=== PATIENT | female | born 1990 | race Caucasian/White ===

== ENCOUNTER 2018-09-05 07:52 | Emergency (ER) | payer OTHER ==
[~2018-09-05] VITALS: Ht 177.8 cm; Wt 104.3 kg
--- OUTSIDE RECORDS SUMMARY | 2018-09-05 07:55 | XMS REPORT | Encounter Summary ---
Author Organization Unknown Address [address] [place] [address] Phone [phone] Reason for Visit Medical Complaint Instructions 1. Sore throat symptom sore throat: care instructions rapid strep group A, throat Lidocaine Viscous 2 % mucosal solution 2. Cough cough: care instructions rapid flu (A+B) Bromfed DM 2 mg-30 mg-10 mg/5 mL syrup 3. Rhinitis fluticasone 50 mcg/actuation nasal spray,suspension rhinitis: care instructions 4. Smoker stopping smoking: care instructions peak flow 5. Elevated blood pressure elevated blood pressure: care instructions dash diet: care instructions blood pressure monitoring education 6. Body mass index 30+ - obesity body mass index: care instructions learning about healthy weight Discussion Note: None recorded. Plan of Care Patient Instructions Rhinitis is swelling and irritation in the nose. Allergies and infections are often the cause. Your nose may run or feel stuffy. Other symptoms are itchy and sore eyes, ears, throat, and mouth. If allergies are the cause, your doctor may do tests to find out what you are allergic to. You may be able to stop symptoms if you avoid the things that cause them. Your doctor may suggest or prescribe medicine to ease your symptoms. Follow-up care is a cameron part of your treatment and safety. Be sure to make and go to all appointments, and call your doctor if you are having problems. It's also a good idea to know your test results and keep a list of the medicines you take. How can you care for yourself at home? If your rhinitis is caused by allergies, try to find out what sets off (triggers) your symptoms. Take steps to avoid these triggers. Avoid yard work. It can stir up both pollen and mold. Do not smoke or allow others to smoke around you. If you need help quitting, talk to your doctor about stop-smoking programs and medicines. These can increase your chances of quitting for good. Do not use aerosol sprays, cleaning products, or perfumes. If pollen is one of your triggers, close your house and car windows during blooming season. Clean your house often to control dust. Keep pets outside. If your doctor recommends isaw-vwi-trexknx medicines to relieve symptoms, take your medicines exactly as prescribed. Call your doctor if you think you are having a problem with your medicine. Use saline (saltwater) nasal washes to help keep your nasal passages open and wash out mucus and bacteria. You can buy saline nose drops at a grocery store or drugstore. Or you can make your own at home by adding 1 teaspoon of salt and 1 teaspoon of baking soda to 2 cups of distilled water. If you make your own, fill a bulb syringe with the solution, insert the tip into your nostril, and squeeze gently. Blow your nose. When should you call for help? Call your doctor now or seek immediate medical care if: You are having trouble breathing. Watch closely for changes in your health, and be sure to contact your doctor if: Mucus from your nose gets thicker (like pus) or has new blood in it. You have new or worse symptoms. You do not get better as expected. Reminders Provider Appointments None recorded. Lab Rapid Strep Group a, Throat 07/25/2018 [facility] Rapid Flu (A+B) 07/25/2018 [facility] Referral None recorded. Procedures None recorded. Surgeries None recorded. Imaging None recorded. Medications Name Start Date amoxicillin 500 mg capsule amoxicillin 875 mg-potassium clavulanate 125 mg tablet benzonatate 100 mg capsule Bromfed DM 2 mg-30 mg-10 mg/5 mL syrup Take 10 mL every 4 hours by oral route. chlorhexidine gluconate 0.12 % mouthwash fluticasone 50 mcg/actuation nasal spray,suspension Story 1 spray every day by intranasal route. ipratropium bromide 42 mcg (0.06 %) nasal spray Lidocaine Viscous 2 % mucosal solution Take 15 mL every 3 hours by oral route. methylprednisolone 4 mg tablets in a dose pack USE DIRECTED Mirena 20 mcg/24 hr (5 years) intrauterine device montelukast 10 mg tablet TK 1 T PO QD ondansetron 4 mg disintegrating tablet oseltamivir 75 mg capsule Medications Administered None recorded. Vitals Height Weight BMI Blood Pressure 5 ft 10 in 230 lbs 33 kg/m2 110/80 mm[Hg] Lab Results Date Name Specimen Result Interpretation Description Value Range Status Address 07/25/2018 Peak Flow Pef 502 [facility]: [facility] Percent Predicted Value 60 [facility]: [facility] Rapid Flu (A+B) Influenza a negative [facility]: [facility] Influenza B negative [facility]: [facility] Rapid Strep Group a, Throat Result negative [facility]: 9 [facility] Swab Location Left and Right tonsillar pillars [facility]: [facility] Allergies Code Code System Name Reaction Severity Status Onset NKDA Problems Name Status Onset Date Source Allergic Rhinitis Active Encounter Gastroenteritis Active Encounter Expiratory Wheezing Active Encounter Procedures Date Name Performed by Tonsillectomy Information not available Vaccine List None recorded. Social History Smoking Status Current Every Day Smoker Past Encounters 07/25/2018 Sore Throat Symptom; Cough; Rhinitis; Smoker; Elevated Blood Pressure; Body Mass Index 30+ - Obesity [facility]: [address] [place] [address], Ph. History of Present Illness Ruzfp-Nvyuzysdim-Uvemgow Reported By: Patient HPI: Location: head/sinuses, throat. Quality: sore throat, nasal/sinus congestion, dry cough. Duration: 3days. Severity: moderate. Onset/Timing: gradual. Context: no sick contacts, no foreign travel, smoker, allergies, asthma. Modifying factors: OTC medication Review of Systems:ROS as noted in the HPI Review of Systems Basic Reported By: Patient Physical Exam Adult Basic, Adult Female Complete Reported By: Patient Constitutional: General Appearance: obese. Level of Distress: NAD. Ambulation: ambulating normally Psychiatric: Mental Status: active and alert. Orientation: to time, to place, to person Hef-Lfoj-Ynrar-Throat: Ears: no lesions on external ear, no outer ear tenderness, EACs clear, TMs clear. Hearing: no hearing loss. Nose: no lesions on external nose, nares patent, no septal deviation, nasal passages clear, no sinus tenderness, no nasal discharge. Lips, Teeth, and Gums: no mouth or lip ulcers, no bleeding gums, normal dentition. Oropharynx: moist mucous membranes, no erythema, no exudates, tonsils not enlarged Lungs: Respiratory effort: no dyspnea, no tachypnea, no use of accessory muscles, no intercostal retractions. Auscultation: breath sounds normal Cardiovascular: Heart Auscultation: RRR, no murmurs
--- OUTSIDE RECORDS SUMMARY | 2018-09-05 07:55 | XMS REPORT | Encounter Summary ---
Author Organization Unknown Address [address] [place] [address] Phone [phone] Reason for Visit Medical Complaint Instructions 1. Seasonal allergic rhinitis seasonal allergies: care instructions montelukast 10 mg tablet Medrol (Ajay) 4 mg tablets in a dose pack 2. Smoker Discussion Note Pt is in NAD; Verbalizes understanding of all instructions with no questions at this time. Plan of Care Patient Instructions Take fluticasone as needed for congestion. [place] one spray in each nostril twice a day. Take a warm, steamy shower, blow your nose thereafter, and spray in each nostril. Tilt your head up for about 10 seconds and breath through your mouth. Do not sniff or snort the medication in or else the medication will go to your throat and not be absorbed appropriately. Alternate with Ibuprofen and acetaminophen every 4hrs as needed for headache Proper hydration and rest Take medications as prescribed. Return to clinic or follow up with your PCP within 2-3 days if symptoms worsen as discussed. Reminders Provider Appointments None recorded. Lab None recorded. Referral None recorded. Procedures None recorded. Surgeries None recorded. Imaging None recorded. Medications Name Start Date Medrol (Ajay) 4 mg tablets in a dose pack Take as directed on package. montelukast 10 mg tablet Take 1 tablet every day by oral route as directed for 30 days. Medications Administered None recorded. Vitals Height Weight BMI Blood Pressure 5 ft 9 in 215 lbs 31.7 124/82 Lab Results None recorded. Allergies Code Code System Name Reaction Severity Onset NKDA Problems Name Status Onset Date Source Allergic Rhinitis Active Encounter Gastroenteritis Active Encounter Expiratory Wheezing Active Encounter Procedures Date Name Performed by Tonsillectomy Information not available Vaccine List None recorded. Social History Smoking Status Current Every Day Smoker Past Encounters 11/23/2016 Seasonal Allergic Rhinitis; Smoker [facility]: [address] [place] [address], Ph. History of Present Illness Mswyb-Eyignipudu-Ouvhzfs Reported By: Patient HPI: Location: head/sinuses. Quality: nasal/sinus congestion. Duration: 4days. Severity: moderate. Onset/Timing: gradual. Context: no sick contacts, no foreign travel, smoker, allergies. Modifying factors: OTC medication. Associated Symptoms: no sputum production, no shortness of breath, no wheezing, no change in number of pillows needed to sleep at night, no sweats, no significant weight gain, no significant weight loss, no morning cough, no sore throat, no vomiting, no diarrhea, no rash, no nausea, no fever, no muscle aches, headache; sinus/ ear pressure Review of Systems:ROS as noted in the HPI Review of Systems Basic Reported By: Patient Physical Exam Adult Basic, Adult Female Complete Reported By: Patient Constitutional: General Appearance: healthy-appearing, well-nourished, well-developed. Level of Distress: NAD. Ambulation: ambulating normally Psychiatric: Mental Status: active and alert. Orientation: to time, to place, to person Eyes: Lids and Conjunctivae: non-injected Ifh-Wzjc-Cnhby-Throat: Ears: no lesions on external ear, no outer ear tenderness, EACs clear, TMs clear. Hearing: no hearing loss. Nose: no lesions on external nose, nares patent, no septal deviation, nasal passages clear, no sinus tenderness, nasal discharge--rhinorrhea, post nasal drip; Nasal turbinates are edematous and pale bilaterally. Lips, Teeth, and Gums: no mouth or lip ulcers, no bleeding gums, normal dentition. Oropharynx: moist mucous membranes, no erythema, no exudates, tonsils not enlarged Neck: Neck: supple. Lymph Nodes: no cervical LAD Lungs: Respiratory effort: no dyspnea, no tachypnea, no use of accessory muscles, no intercostal retractions. Auscultation: breath sounds normal Cardiovascular: Heart Auscultation: RRR, no murmurs Neurologic: Gait and Station: normal gait
--- OUTSIDE RECORDS SUMMARY | 2018-09-05 07:55 | XMS REPORT | Encounter Summary ---
Author Organization Unknown Address [address] [place] [address] Phone [phone] Reason for Visit Medical Complaint; headache, cough, allergies, chest congestion x2 weeks getting worse x 4 days Instructions 1. Allergic rhinitis Xyzal 5 mg tablet 2. Expiratory wheezing Medrol (Ajay) 4 mg tablets in a dose pack albuterol sulfate HFA 90 mcg/actuation aerosol inhaler Discussion Note: None recorded. Patient educational handouts: No information available. Plan of Care Patient Instructions Start on Rhinocort daily x 7-14 days along with prescribed medication. If noted symptoms worsening with fever, call clinic or see pcp. Reminders Provider Appointments None recorded. Lab None recorded. Referral None recorded. Procedures None recorded. Surgeries None recorded. Imaging None recorded. Medications Name Start Date albuterol sulfate HFA 90 mcg/actuation aerosol inhaler Inhale 2 puffs every 4 hours by inhalation route as needed for wheezing. Medrol (Ajay) 4 mg tablets in a dose pack Take as directed on package. Xyzal 5 mg tablet Take 1 tablet every day by oral route at bedtime for allergies for 30 days. Medications Administered None recorded. Vitals Height Weight BMI Blood Pressure 5 ft 9 in 210 lbs 31 120/86 Lab Results None recorded. Allergies Name Reaction Severity Onset NKDA Problems Name Status Onset Date Source Allergic Rhinitis Active Encounter Gastroenteritis Active Encounter Expiratory Wheezing Active Encounter Procedures Date Name Performed by Tonsillectomy Information not available Vaccine List None recorded. Social History Smoking Status Current Every Day Smoker Past Encounters 04/19/2016 Allergic Rhinitis; Expiratory Wheezing Cassidy Gonzalez, [facility]: [address] [place] [address], Ph. History of Present Illness [id number]-Pwdmeui Reported By: Patient HPI: Location: chest. Quality: productive cough, nasal/sinus congestion. Duration: 14days. Severity: moderate. Onset/Timing: gradual. Context: no sick contacts, no foreign travel, non-smoker, allergies. Modifying factors: OTC medication. Associated Symptoms: no sputum production, no shortness of breath, no change in number of pillows needed to sleep at night, no sweats, no significant weight gain, no significant weight loss, no morning cough, no sore throat, no vomiting, no diarrhea, no rash, no nausea, wheezing Review of Systems Basic Reported By: Patient Constitutional: Constitutional: no fever Eyes: Eyes: no eye complaints Uoeg-Nzxy-Mhodx-Throat: Ears: no ear complaints. Nose: nose/sinus problems. Mouth/Throat: no sore throat, no bleeding gums, no mouth complaints, no teeth problems Cardiovascular: Cardiovascular: no chest pain, no shortness of breath, no known heart murmur Respiratory: Respiratory: no shortness of breath, cough, wheezing Gastrointestinal: Gastrointestinal: no abdominal pain, no vomiting / diarrhea Genitourinary: Genitourinary: no urinary complaints, no discharge Musculoskeletal: Musculoskeletal: no muscle aches, no muscle weakness, no arthralgias/joint pain, no back pain Skin: Skin: no abnormal / changing mole, no jaundice, no rashes Neurologic: Neurologic: no loss of consciousness, no weakness, no numbness, no seizures, no dizziness, no headaches Physical Exam Adult Basic, Adult Female Complete Constitutional: General Appearance: healthy-appearing, well-nourished, well-developed. Level of Distress: NAD. Ambulation: ambulating normally Psychiatric: Mental Status: active and alert. Orientation: to time, to place, to person Eyes: Lids and Conjunctivae: non-injected, no discharge, no pallor. Pupils: PERRLA. Corneas: grossly intact. EOM: EOMI. Lens: clear. Sclerae: non-icteric. Vision: acuity grossly intact Gxr-Pfsx-Rczpg-Throat: Ears: no lesions on external ear, no outer ear tenderness, EACs clear, TMs clear, middle ear fluid. Hearing: no hearing loss. Nose: no lesions on external nose, nares patent, no septal deviation, nasal passages clear, no sinus tenderness, post nasal drip. Lips, Teeth, and Gums: no mouth or lip ulcers, no bleeding gums, normal dentition. Oropharynx: moist mucous membranes, no erythema, no exudates, tonsils not enlarged Neck: Neck: supple, trachea midline, no masses, FROM. Lymph Nodes: no cervical LAD, no supraclavicular LAD. Thyroid: no enlargement, non-tender, no nodules Lungs: Respiratory effort: no dyspnea, no tachypnea, no use of accessory muscles, no intercostal retractions. Auscultation: expiratory wheezing Cardiovascular: Heart Auscultation: RRR, no murmurs. Neck vessels: no carotid bruits
--- OUTSIDE RECORDS SUMMARY | 2018-09-05 07:55 | XMS REPORT | Continuity of Care Document ---
Author Author [facility] Interface Address Unknown Phone Unavailable Problems Problem Status Onset Date Classification Date Reported Comments Source Body mass index 30+ - obesity 07/26/2018 Diagnosis 07/26/2018 [facility] Elevated blood pressure 07/26/2018 Diagnosis 07/26/2018 [facility] Rhinitis 07/26/2018 Diagnosis 07/26/2018 [facility] Cough 07/26/2018 Diagnosis 07/26/2018 [facility] Sore throat symptom 07/26/2018 Diagnosis 07/26/2018 [facility] Smoker 07/26/2018 Diagnosis 07/26/2018 [facility] Seasonal allergic rhinitis 11/23/2016 Diagnosis 11/23/2016 [facility] Allergic rhinitis 04/19/2016 Diagnosis 04/19/2016 [facility] Expiratory wheezing 04/19/2016 Diagnosis 04/19/2016 [facility] Allergic Rhinitis Problem 07/26/2018 [facility] Gastroenteritis Problem 07/26/2018 [facility] Expiratory Wheezing Problem 07/26/2018 [facility] Medications Medication Details Route Status Patient Instructions Ordering Provider Order Date Source 200 ACTUAT Albuterol 0.09 MG/ACTUAT Metered Dose Inhaler albuterol sulfate HFA 90 mcg/actuation aerosol inhaler Inhale 2 puffs every 4 hours by inhalation route as needed for wheezing. Active [facility] Medrol (Ajay) 4 mg tablets in a dose pack Medrol (Ajay) 4 mg tablets in a dose pack Take as directed on package. Active [facility] levocetirizine dihydrochloride 5 MG Oral Tablet [Xyzal] Xyzal 5 mg tablet Take 1 tablet every day by oral route at bedtime for allergies for 30 days. Active [facility] montelukast 10 MG Oral Tablet montelukast 10 mg tablet TK 1 T PO QD Active [facility] Amoxicillin 500 MG Oral Capsule amoxicillin 500 mg capsule Active [facility] Amoxicillin 875 MG / Clavulanate 125 MG Oral Tablet amoxicillin 875 mg-potassium clavulanate 125 mg tablet Active [facility] benzonatate 100 MG Oral Capsule benzonatate 100 mg capsule Active [facility] Brompheniramine Maleate 0.4 MG/ML / Dextromethorphan Hydrobromide 2 MG/ML / Pseudoephedrine Hydrochloride 6 MG/ML Oral Solution [Bromfed DM] Bromfed DM 2 mg-30 mg-10 mg/5 mL syrup Take 10 mL every 4 hours by oral route. Active [facility] chlorhexidine gluconate 1.2 MG/ML Mouthwash chlorhexidine gluconate 0.12 % mouthwash Active [facility] Fluticasone propionate 0.05 MG/ACTUAT Metered Dose Nasal [place] fluticasone 50 mcg/actuation nasal spray,suspension [place] 1 spray every day by intranasal route. Active [facility] Ipratropium [place] 0.042 MG/ACTUAT Metered Dose Nasal [place] ipratropium bromide 42 mcg (0.06 %) nasal spray Active [facility] Lidocaine Hydrochloride 20 MG/ML Mucous Membrane Topical Solution Lidocaine Viscous 2 % mucosal solution Take 15 mL every 3 hours by oral route. Active [facility] methylprednisolone 4 mg tablets in a dose pack methylprednisolone 4 mg tablets in a dose pack USE DIRECTED Active [facility] Levonorgestrel 0.823331 MG/HR Intrauterine System [Mirena] Mirena 20 mcg/24 hr (5 years) intrauterine device Active [facility] Ondansetron 4 MG Disintegrating Oral Tablet ondansetron 4 mg disintegrating tablet Active [facility] Oseltamivir 75 MG Oral Capsule oseltamivir 75 mg capsule Active [facility] Allergies, Adverse Reactions, Alerts Substance Category Reaction Severity Reaction type Status Date Reported Comments Source Immunizations Immunization Date Given Site Status Last Updated Comments Source Results Order Name Results Value Reference Range Date Interpretation Comments Source PEF 502 07/25/2018 [facility] Percent Predicted Value 60 07/25/2018 [facility] Influenza A negative 07/25/2018 [facility] Influenza B negative 07/25/2018 [facility] RESULT negative 07/25/2018 [facility] SWAB LOCATION Left and Right tonsillar pillars 07/25/2018 [facility] Vital Signs Vital Sign Value Date Comments Source Diastolic (mm Hg) 80 07/25/2018 [facility] Height 70 07/25/2018 [facility] Systolic (mm Hg) 110 07/25/2018 [facility] Weight 230 07/25/2018 [facility] Diastolic (mm Hg) 82 11/23/2016 [facility] Height 69 11/23/2016 [facility] Systolic (mm Hg) 124 11/23/2016 [facility] Weight 215 11/23/2016 [facility] Diastolic (mm Hg) 86 04/19/2016 [facility] Height 69 04/19/2016 [facility] Systolic (mm Hg) 120 04/19/2016 [facility] Weight 210 04/19/2016 [facility] Encounters Location Location Details Encounter Type Encounter Number Reason For Visit Attending Provider ADM Date DC Date Status Source [place] - [facility] - [id number] Cassidy Gonzalez, [employer]: [address] [place] [address], Ph. [id number] Cassidy Gonzalez 04/19/2016 [facility] [place] - [facility] - [id number] PAUL FletcherP[facility]: [address] [place] [address], Ph. [id number] Dunia Venegas 11/23/2016 [facility] [place] - [facility] - [id number] PAUL [facility]unaway[facility]: [address] [place] [address], Ph. [id number] Rachel Araya 07/25/2018 [facility] Procedures Procedure Code Date Perfomer Comments Source Tonsillectomy [facility]
[2018-09-05] MEDS ORDERED: KETOROLAC TROMETHAMINE 30 MG/ML VIAL IV STA (08:05)
[2018-09-05] MEDS ORDERED: DICYCLOMINE HCL 20 MG/2 ML VIAL IM ONE (08:15)
[2018-09-05] MEDS ORDERED: MORPHINE SULFATE 5 MG/ML VIAL IV ONE (08:15)
[2018-09-05] MEDS ORDERED: SODIUM CHLORIDE 0.9% 1000ML 1,000 ML IV ONE (08:15)
[2018-09-05] MEDS ORDERED: METOCLOPRAMIDE HCL 10 MG/2ML VIAL IV NR (08:30)
[2018-09-05] MEDS ORDERED: MORPHINE SULFATE INJ 4 MG/ML INJ 1ML IV NR (08:30)
[2018-09-05 08:38] LABS: BASOPHILS % 0.4 % (0.0-1.0); EOSINOPHILS # (AUTO) 0.3 (0.0-0.4); EOSINOPHILS % 3.2 % (0.0-6.0); HEMATOCRIT 37.2 % (34.2-44.1); LYMPHOCYTES # (AUTO) 2.1 (1.0-3.2); LYMPHOCYTES % 24.7 % (18.0-39.1); MEAN CORPUSCULAR HEMOGLOBIN 33.3 pg (28-32); MEAN CORPUSCULAR HGB CONC 37.6 g/dL (31-35); MEAN CORPUSCULAR VOLUME 88.6 fL (81-99); MONOCYTES # (AUTO) 0.8 (0.2-0.8); MONOCYTES % 9.3 % (4.4-11.3); NEUTROPHILS # (AUTO) 5.2 (2.1-6.9); PLATELET COUNT 260 x10e3/uL (140-360); RED CELL DISTRIBUTION WIDTH 13.1 % (11.7-14.4)
[2018-09-05 08:51] LABS: BILIRUBIN,URINE NEGATIVE (NEGATIVE); CLARITY,URINE CLEAR (CLEAR); COLOR,URINE YELLOW (YELLOW); KETONES,URINE NEGATIVE (NEGATIVE); LEUKOCYTE ESTERASE ,URINE TRACE (NEGATIVE); NITRITE,URINE NEGATIVE (NEGATIVE); PROTEIN,URINE DIPSTICK NEGATIVE (NEGATIVE); URINE UROBILINOGEN 0.2 mg/dL (0.2 - 1)
[2018-09-05 08:52] LABS: PREGNANCY TEST, URINE NEGATIVE (NEGATIVE)
--- NOTE | 2018-09-05 09:02 | Diagnostic Imaging Report ---
EXAM: Gallbladder Ultrasound INDICATION: Abdominal pain. Chest pain. Right upper quadrant pain. ^RUQ Pain, N/V, worse after eating COMPARISON: None. TECHNIQUE: Transverse and longitudinal images of the right upper quadrant of the abdomen were obtained. FINDINGS: Liver: Normal appearance. No focal liver mass is seen. The liver measures 13.0 cm in length. Gallbladder: Stones/Sludge: 1.3 x 0.6 x 1.6 cm echogenic lesion with shadowing in the gallbladder neck likely due to a gallstone Wall: 0.2 cm Appearance: No wall thickening, pericholecystic fluid or hydrops. Sonographic Hartley's Sign: Negative Bile Ducts: Intrahepatic Ducts: No dilatation Extrahepatic Ducts: Common bile duct measures 0.4 cm, no dilatation The pancreas is normal in appearance. The right kidney is normal in appearance measuring 11.2 cm in length. The main portal vein is normal in appearance with hepatopedal flow and a diameter of 1.2 cm. The abdominal aorta is not well seen due to overlying bowel gas. The inferior vena cava is unremarkable. Free Fluid: No ascites or pleural effusion IMPRESSION: 1.6 cm echogenic lesion with shadowing in the gallbladder neck likely due to a gallstone. No ductal dilatation is seen. The gallbladder is otherwise unremarkable. The abdominal aorta is not well seen due to overlying bowel gas. No renal stones are seen. Signed by: Dr. Jordin Licea M.D. on 09/05/2018 8:59 AM
[2018-09-05 09:05] LABS: BACTERIA,URINE FEW /HPF; EPITHELIAL CELLS,URINE MANY /LPF; RBC,URINE 0-5 /HPF (0-5)
[2018-09-05 09:08] LABS: ALANINE AMINOTRANSFERASE 20 IU/L (0-55); ALBUMIN 3.8 g/dL (3.5-5.0); ALBUMIN/GLOBULIN RATIO 1.5 (0.8-2.0); ALKALINE PHOSPHATASE 49 IU/L (40-150); BLOOD UREA NITROGEN 8 mg/dL (7-26); BUN/CREATININE RATIO 10 (6-25); CARBON DIOXIDE 24 mmol/L (22-29); CHLORIDE 106 mmol/L (98-107); EST GLOMERULAR FILTRATION RATE > 60 ML/MIN (60-); GLUCOSE 88 mg/dL (74-118); LIPASE 17 U/L (8-78); SODIUM 139 mmol/L (136-145)
[2018-09-05] MEDS ORDERED: METOCLOPRAMIDE HCL 10 MG/2ML VIAL IV ONE (09:15)
[2018-09-05 10:53] VITALS: BP 106/67
--- NOTE | 2018-09-08 08:34 | NUR ---
[facility] CALLED REGARDING QUANITY CT FOR BENTYL RX. OK PER MICHELLE TO GIVEN 30 TABS.
== END 2018-09-05 11:10 | disposition home or self-care (01) ==
LOC: ER 07:52
DX: R10.11 Right upper quadrant pain (principal); R11.2 Nausea with vomiting, unspecified; K80.70 Calculus of gallbladder and bile duct without cholecystitis without obstruction; F17.210 Nicotine dependence, cigarettes, uncomplicated
CPT/HCPCS: 36415; 76705; 80053; 81001; 81025; 83690; 85025; 99284; J0500; J1885; J2765; J7030